=== PATIENT | female | born 1990 | race Caucasian/White ===

== ENCOUNTER 2019-12-31 08:02 | Emergency (ER) | payer OTHER ==
--- NOTE | 2019-12-31 08:14 | PDOC ---
History of Present Illness - General History Source: Patient - History of Present Illness Initial Comments: 12/31/19 08:31 Ms. Barragan is a 29 y/o with hx HTN, HLD, depression, asthma at approx 17 weeks gestation (LMP 09/01/2019) presenting with vaginal spotting today. She reports walking into a pole yesterday while texting. This AM she awoke with 7/10, crampng, non-radiating lower abdominal pain and noted 3x vaginal spotting. She reports concern given her prior miscarriages and called for EMS. She has not taken anything for pain at this time. No clots in the vaginal bleeding. Prior miscarriages occurred at approx 5 weeks gestation. She does not recall the name of her marketing operations analyst and has not had confirmatory US, but has been taking vitamins. <Rubens Gould - Last Filed: 12/31/19 11:39> <Rina Mccray - Last Filed: 01/02/20 11:46> - General Chief Complaint: Pain, Acute Stated Complaint: POSSIBLE MISCARRIAGE Time Seen by Provider: 12/31/19 08:14 Past History <Rubens Gould - Last Filed: 12/31/19 11:39> <Rina Mccray - Last Filed: 01/02/20 11:46> - Past Medical History Allergies/Adverse Reactions: Allergies Allergy/AdvReac Type Severity Reaction Status Date / Time haloperidol [From Haldol] Allergy Verified 12/31/19 08:20 lithium Allergy Verified 12/31/19 08:20 Home Medications: Ambulatory Orders Cephalexin [Keflex] 500 mg PO TID 10 Days #30 capsule 12/31/19 Pnv No.95/Ferrous Fum/Folic AC [ Vitamin Tablet] 1 each PO DAILY 12/31/19 Review of Systems - Review of Systems Able to Perform ROS?: Yes Comments:: 12/31/19 08:44 GENERAL/CONSTITUTIONAL: No fever or chills. No weakness. HEAD, EYES, EARS, NOSE AND THROAT: No change in vision. No ear pain or discharge. No sore throat. CARDIOVASCULAR: No chest pain or shortness of breath RESPIRATORY: No cough, wheezing, or hemoptysis. GASTROINTESTINAL: Abdominal pain. No nausea, vomiting, diarrhea or constipation. GENITOURINARY: Vaginal bleeding. No dysuria, frequency, or change in urination. MUSCULOSKELETAL: No joint or muscle swelling or pain. No neck or back pain. SKIN: No rash NEUROLOGIC: No headache, vertigo, loss of consciousness, or change in strength/sensation. ENDOCRINE: No increased thirst. No abnormal weight change HEMATOLOGIC/LYMPHATIC: No anemia, easy bleeding, or history of blood clots. ALLERGIC/IMMUNOLOGIC: No hives or skin allergy. <Rubens Gould - Last Filed: 12/31/19 11:39> *Physical Exam - Physical Exam 12/31/19 08:44 GENERAL: Awake, alert, and fully oriented, in no acute distress HEAD: No signs of trauma, normocephalic, atraumatic EYES: PERRLA, EOMI, sclera anicteric, conjunctiva clear ENT: Auricles normal inspection, hearing grossly normal, nares patent, oropharynx clear without exudates. Moist mucosa NECK: Normal ROM, supple, no lymphadenopathy, JVD, or masses LUNGS: No distress, speaks full sentences, clear to auscultation bilaterally HEART: Regular rate and rhythm, normal S1 and S2, no murmurs, rubs or gallops, peripheral pulses normal and equal bilaterally. ABDOMEN: Epigastric, suprapubic tenderness. Soft, normoactive bowel sounds. No guarding, no rebound. No masses EXTREMITIES : Normal inspection, Normal range of motion, no edema. No clubbing or cyanosis NEUROLOGICAL: Cranial nerves II through XII grossly intact. Normal speech, normal gait, no focal sensorimotor deficits SKIN: Warm, Dry, normal turgor, no rashes or lesions noted <Rubens Gould - Last Filed: 12/31/19 11:39> - Vital Signs Last Vital Signs Temp Pulse Resp BP Pulse Ox 98.4 F 90 16 143/81 100 12/31/19 08:14 12/31/19 08:14 12/31/19 08:14 12/31/19 08:14 12/31/19 08:14 - Physical Exam Female Pelvic Exam: positive: normal external exam, cervical os closed, normal adnexa, other (no CMT, physiologic white discharge, no bleeding; performed with resident and myself) <Rina Mccray - Last Filed: 01/02/20 11:46> ED Treatment Course - LABORATORY CBC & Chemistry Diagram: 12/31/19 09:05 12/31/19 09:05 <Rubens Gould - Last Filed: 12/31/19 11:39> - LABORATORY CBC & Chemistry Diagram: 12/31/19 09:05 12/31/19 09:05 - ADDITIONAL ORDERS Additional order review: 12/31/19 09:10 Urine Culture - Final Urine - Urine Clean Catch NO GROWTH OBTAINED 12/31/19 09:05 RBC 3.88 MCV 89.8 MCHC 33.7 RDW 14.2 MPV 9.4 Neutrophils % 64.7 Lymphocytes % 26.3 Monocytes % 6.0 Eosinophils % 2.3 Basophils % 0.7 - Medications Given in the ED: ED Medications Discontinued Medications Generic Name Dose Route Start Last Admin Trade Name Lisa PRN Reason Stop Dose Admin Acetaminophen 650 mg 12/31/19 08:30 12/31/19 08:50 Tylenol - PO 12/31/19 08:31 650 mg ONCE ONE Administration <Rina Mccray - Last Filed: 01/02/20 11:46> Medical Decision Making - Medical Decision Making 12/31/19 08:46 29F at 17 weeks gestation p/w one day of vaginal spotting after abdominal trauma yesterday. Ddx includes threatened, inevitable, missed . Plan: CBC CMP Type and screen HCG quant UA Urine culture ABdominal ultrasound Pelvic exam to assess cervical os, signs of active bleeding Dispo: Discharge 12/31/19 10:07 Pelvis exam - no external erythema, ulcerations, discharge, bleeding. Cervical os visualized, no active bleeding or blood in vault. US - normal movements, HR 132 UA - 1+ leuk esterase. She denies any dysuria, frequency, hematuria. Plan for abx for asymptomatic bacteruria. <Rubens Gould - Last Filed: 12/31/19 11:39> Discharge - Discharge Information Problems reviewed: Yes - Admission No <Rubens Gould - Last Filed: 12/31/19 11:39> <Rina Mccray - Last Filed: 01/02/20 11:46> - Discharge Information Clinical Impression/Diagnosis: Vaginal spotting, UTI (urinary tract infection) during Condition: Stable Disposition: HOME - Additional Discharge Information Prescriptions: Cephalexin [Keflex] 500 mg PO TID 10 Days #30 capsule - Follow up/Referral Referrals: Jimmie Cosby [Primary Care Provider] - - Patient Discharge Instructions Patient Printed Discharge Instructions: DI for Urinary Tract Infection (UTI), DI for Vaginal Bleeding During Additional Instructions: You were seen in the ER for vaginal spotting during the . Your bloodwork was normal. Your urine showed a UTI - please take the prescribed antibiotic as directed even if you are not having symptoms as untreated infection can affect . Return to the ER if you develop high fevers, weakness, confusion, repeat vaginal bleeding, or worsened abdominal pain. Follow up with your marketing operations analyst as soon as possible, in the next 2-3 days.
--- NOTE | 2019-12-31 08:23 | PDOC ---
Attending Attestation - Resident Resident Name: Rubens Gould - ED Attending Attestation I have performed the following: I have examined & evaluated the patient, The case was reviewed & discussed with the resident, I agree w/resident's findings & plan - HPI HPI: 12/31/19 11:16 29 y/o with hx HTN, HLD, depression, asthma at approx 17 weeks gestation (LMP 09/01/2019) presenting with vaginal spotting today. She reports walking int o a pole yesterday while texting. This AM she awoke with 7/10, crampng, non- radiating lower abdominal pain and noted 3x vaginal spotting. She reports concern given her prior miscarriages and called for EMS. She has not taken anything for pain at this time. No clots in the vaginal bleeding. Prior miscarriages occurred at approx 5 weeks gestation. She does not recall the name of her milieu counselor and has not had confirmatory US, but has been taking vitamins. LMP 09/01/20 - Physicial Exam PE: 12/31/19 08:22 Agree with the resident's HPI and PE as documented in the electronic medical record. NAD, well appearing, EOMI, PERRL, nl conjunctiva, anicteric; neck supple. lungs clear, RRR, abdomen soft nontender. obese abdomen. no rebound, guarding. Back no ntender. ROBIN x4, no focal neuro deficits. No peripheral edema. normal color for ethnicity, WWP. pelvic exam performed with the resident, no bleeding, normal external genitalia. white discharge, likely physiologic. no cmt 12/31/19 11:16 12/31/19 12:10 - Medical Decision Making 12/31/19 08:23 Vital Signs Temp Pulse Resp BP Pulse Ox 98.4 F 90 88 H 143/81 100 12/31/19 08:14 12/31/19 08:14 12/31/19 08:14 12/31/19 08:14 12/31/19 08:14 DDx female VB: ectopic , miscarriage, demise, subchorionic hematoma, retained POC, normal first trimester bleeding, UTI in in . Fibroid uterus, vaginitis, infection, electrolyte/metabolic derangements, anemia. Rh positive, no rhogam indicated VS wnl, normotensive, no tachy or hypoxia/respiratory distress. initial RR 88, which is incorrect, will be changed as pt is breathing normally, RR<20. abdomen benign on reeval and no peritoneal findings, no VB here TAB sono with live IUP at 134bpm, +FM Beta-hCG is 15,500. UA does show WBCs of 135 and bacteria , patient does have some urinary symptoms including itch and mild discharge keflex x 10 day course for bacteruria/UTI of , f/u urine cultures Dispo: OB followup, bleeding precautions; return to ED if persistent and heavy vaginal bleeding, persistent pelvic pain not relieved by your prescribed medications, dizziness, shortness of breath, new and persistent fevers, other foul smelling discolored vaginal discharge, or for any other concerns. 12/31/19 11:47 12/31/19 11:49 Discharge - Discharge Information Problems reviewed: Yes Clinical Impression/Diagnosis: Vaginal spotting UTI (urinary tract infection) during Qualifiers: Trimester: second trimester Qualified Code(s): O23.42 - Unspecified infection of urinary tract in , second trimester Condition: Stable Disposition: HOME - Admission No - Additional Discharge Information Prescriptions: Cephalexin [Keflex] 500 mg PO TID 10 Days #30 capsule - Follow up/Referral Referrals: Jimmie Cosby [Primary Care Provider] - - Patient Discharge Instructions Patient Printed Discharge Instructions: DI for Urinary Tract Infection (UTI), DI for Vaginal Bleeding During Additional Instructions: You were seen in the ER for vaginal spotting during the . Your bloodwork was normal. Your urine showed a UTI - please take the prescribed antibiotic as directed even if you are not having symptoms as untreated infection can affect . Return to the ER if you develop high fevers, weakness, confusion, repeat vaginal bleeding, or worsened abdominal pain. Follow up with your milieu counselor as soon as possible, in the next 2-3 days. - Post Discharge Activity
[2019-12-31 08:28] VITALS: BP 143/81; PULSE 90; TEMP 98.4; BMI 58.2
[2019-12-31] MEDS ORDERED: ACETAMINOPHEN 325 MG TABLET (FP) PO ONE (08:30)
[2019-12-31] MEDS ORDERED: ACETAMINOPHEN 325 MG TABLET (FP) ONE (08:43)
[2019-12-31 09:23] LABS: BASO % 0.7 % (0-2.0); EOS % 2.3 % (0-4.5); HEMATOCRIT 34.9 % (32.4-45.2); HEMOGLOBIN 11.8 GM/dL (10.7-15.3); LYMPH % 26.3 % (8-40); MCH 30.3 pg (25.7-33.7); MCHC 33.7 g/dl (32.0-36.0); MEAN CELL VOLUME 89.8 fl (80-96); MEAN PLT VOLUME 9.4 fl (7.5-11.1); NEUT % 64.7 % (42.8-82.8); PLATELET COUNT 248 K/MM3 (134-434); RBC 3.88 M/mm3 (3.60-5.2); RDW 14.2 % (11.6-15.6); WHITE BLOOD COUNT 9.6 K/mm3 (4.0-10.0)
[2019-12-31 09:38] LABS: EPI CELLS >36 /HPF (0-5/HPF); HYALINE CASTS 9 /lpf (0-8); URINE APPEARANCE CLOUDY; URINE BACTERIA 2150 /hpf (NEGATIVE); URINE BILIRUBIN 1+ (NEGATIVE); URINE COLOR DK YELLOW; URINE GLUCOSE (UA) NEGATIVE (NEGATIVE); URINE KETONE TRACE (NEGATIVE); URINE LEUK ESTERASE TRACE (NEGATIVE); URINE NITRITE NEGATIVE (NEGATIVE); URINE PROTEIN NEGATIVE (NEGATIVE); URINE RBC 7 /hpf (0-4); URINE WBC 135 /hpf (0-5)
[2019-12-31 09:50] LABS: ALBUMIN 2.8 g/dl (3.4-5.0); BILIRUBIN,TOTAL 0.3 mg/dL (0.2-1); BLOOD UREA NITROGEN 10.6 mg/dL (7-18); CALCIUM 8.7 mg/dL (8.5-10.1); CREATININE 0.5 mg/dL (0.55-1.3); POTASSIUM 4.3 mmol/L (3.5-5.1); TOT PROT 6.4 g/dl (6.4-8.2)
[2019-12-31] MEDS ORDERED: RHO(D) IMMUNE GLOBULIN 1,500 UNIT DISP.SYRIN IM ONE (11:30)
== END 2019-12-31 11:54 | disposition home or self-care (01) ==
LOC: JER 08:02
DX: O26.892 Other specified pregnancy related conditions, second trimester (principal); O26.852 Spotting complicating pregnancy, second trimester; O23.42 Unspecified infection of urinary tract in pregnancy, second trimester; Z3A.17 17 weeks gestation of pregnancy; Z88.8 Allergy status to other drugs, medicaments and biological substances
CPT/HCPCS: 36415; 76815; 80053; 81003; 84702; 85025; 86850; 86900; 86901; 87086; 99284-25

== ENCOUNTER 2024-11-05 11:12 | Emergency (ER) | payer OTHER ==
[2024-11-05 11:36] VITALS: BP 144/83; PULSE 96; RESP 18; TEMP 97.9; BMI 44.2
[2024-11-05] MEDS ORDERED: MAG HYDROX/AL HYDROX/SIMETH 30 ML UNIT-DOSE CUP ONE ×2 (12:27→12:28)
[2024-11-05] MEDS ORDERED: ONDANSETRON *ODT* 4 MG TABLET ONE (12:27)
[2024-11-05] MEDS: MAG HYDROX/AL HYDROX/SIMETH 30 ML UNIT-DOSE CUP PO ONE (12:34)
[2024-11-05] MEDS: ONDANSETRON *ODT* 4 MG TABLET SL ONE (12:34)
[2024-11-05] MEDS ORDERED: ACETAMINOPHEN INJECTION 100 ML ONE (13:35)
[2024-11-05] MEDS ORDERED: FAMOTIDINE 20 MG/50 ML IVPB 20 MG/50 ML MG IVPB ONE (13:35)
[2024-11-05] MEDS: SODIUM CHLORIDE 0.9% 500 ML INFUS.BAG IV ONE (14:00)
[2024-11-05] MEDS: ACETAMINOPHEN 1000 MG/100 ML BAG IVPB ONE (14:01)
[2024-11-05] MEDS: FAMOTIDINE 20 MG/50 ML IVPB 20 MG/50 ML MG IVPB ONE (14:01)
[2024-11-05 14:03] LABS: HEMATOCRIT 41.2 % (32.4-45.2); HEMOGLOBIN 13.7 GM/dL (10.7-15.3); MCH 29.9 pg (25.7-33.7); MCHC 33.2 g/dl (32.0-36.0); MEAN PLT VOLUME 8.9 fl (7.5-11.1); PLATELET COUNT 301 10^3/uL (134-434); RBC 4.58 M/mm3 (3.60-5.2); RDW 14.8 % (11.6-15.6)
[2024-11-05 14:23] LABS: ALBUMIN 3.6 g/dl (3.4-5.0); BLOOD UREA NITROGEN 23.7 mg/dL (7-18); CALCIUM 9.4 mg/dL (8.5-10.1)
[2024-11-05 14:26] LABS: CREATININE 0.7 mg/dL (0.55-1.3)
[2024-11-05 14:28] LABS: BILIRUBIN,TOTAL 0.6 mg/dL (0.2-1); TOT PROT 7.4 g/dl (6.4-8.2)
[2024-11-05] MEDS: ONDANSETRON 4 MG/2 ML VIAL IVPB ONE ×2 (14:43→17:57)
[2024-11-05] MEDS: BISMUTH SUBSALICYLATE 524 MG/30 ML PO ONE (14:43)
[2024-11-05 14:52] LABS: ANISOCYTOSIS 0; HELMET CELLS 0; HOWELL-JOLLY BODIES 0; MACROCYTOSIS 0; OVALOCYTE 0; ROULEAU 0; SICKELED CELLS 0; TARGET CELLS 0; TEAR DROP CELLS 0; TOXIC GRANULATION 0
[2024-11-05 16:22] LABS: URINE APPEARANCE CLEAR; URINE BILIRUBIN NEGATIVE (NEGATIVE); URINE COLOR YELLOW; URINE GLUCOSE (UA) NEGATIVE (NEGATIVE); URINE KETONE TRACE (NEGATIVE); URINE LEUK ESTERASE NEGATIVE (NEGATIVE); URINE NITRITE NEGATIVE (NEGATIVE); URINE PROTEIN TRACE (NEGATIVE); URINE UROBILINOGEN 0.2 mg/dL (0.2-1.0)
[2024-11-05 16:26] LABS: HCG,QUALITATIVE URINE Negative
[2024-11-05] MEDS ORDERED: ONDANSETRON 4 MG/2 ML VIAL ONE (17:48)
== END 2024-11-05 18:48 | disposition home or self-care (01) ==
LOC: JER 11:12
PROC: 3E033GC Introduction of Other Therapeutic Substance into Peripheral Vein, Percutaneous Approach (ICD-10-PCS; principal; 2024-11-05)
PROC: 3E033NZ Introduction of Analgesics, Hypnotics, Sedatives into Peripheral Vein, Percutaneous Approach (ICD-10-PCS; 2024-11-05)
PROC: 3E033GC Introduction of Other Therapeutic Substance into Peripheral Vein, Percutaneous Approach (ICD-10-PCS; 2024-11-05)
DX: R11.2 Nausea with vomiting, unspecified (principal); B34.9 Viral infection, unspecified
CPT/HCPCS: 36415; 74177-TC; 80053; 81003; 83690; 84703; 85025; 87086; 99285-25; J0131; Q0162; Q9967